=== PATIENT | female | born 1955 | race Caucasian/White ===

== ENCOUNTER 2025-06-14 09:25 | Emergency (ER) | payer MEDICARE, SELFPAY ==
--- NOTE | ~2025-06-14 | XR_ITS ---
Examination: XR toe 1st RT min 2V Clinical History: bruised and swollen,STUBBING INJURY,PROXIMAL PHALANGES Comparison: None Technique: 4 views right first toe Findings/impression: 1. Nondisplaced fracture right first toe, proximal phalanx, mid to distal portion. 2. Overhanging erosion first metatarsal, distal portion, lateral surface. Reviewed, dictated and finalized at location R. HOSPICE RN
[2025-06-14 09:32] VITALS: BP 154/90; PULSE 103; RESP 16; TEMP 36.4; O2SAT 99
--- OUTSIDE RECORDS SUMMARY | 2025-06-14 09:33 | XMS_ITS | Encounter Summary ---
Author Organization [facility] Address 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
--- OUTSIDE RECORDS SUMMARY | 2025-06-14 09:33 | XMS_ITS | Clinical Summary ---
Author Organization [facility] Address [address] 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
--- OUTSIDE RECORDS SUMMARY | 2025-06-14 09:33 | XMS_ITS | Clinical Summary ---
Author Organization [facility] [address] [facility] Address [address] [place] [address] Care Team Providers Care Merchandise Stocker Name Role Phone Marshall Cha MD Primary Care Provider [phone] Allergies Active Allergy Reactions Criticality Noted Date Comments Codeine Nausea only,Vomiting Reaction: NAUSEA, VOMITING, , , Reaction: Nausea, Medications pravastatin (PRAVACHOL) 20 mg tabletIndications: Hyperlipidemia, unspecified hyperlipidemia type TAKE 1 TABLET (20 MG TOTAL) BY MOUTH DAILY 90 tablet 9 01/08/20 25 Active phentermine 30 mg capsule TAKE 1 CAPSULE BY MOUTH EVERY DAY IN THE MORNING 30 capsule 06/03/20 25 Active phentermine 30 mg capsule TAKE 1 CAPSULE BY MOUTH EVERY DAY IN THE MORNING 30 capsule 05/02/20 25 025 Discontinued Active Problems Problem Noted Date Diagnosed Date BMI 33.0-33.9,adult 05/06/2025 Assessment & Plan (05/06/2025 9:36 AM CDT): As above. Encounter for Medicare annual wellness exam 08/10 Assessment & Plan (08/20/2024 9:54 AM FILM BOOKER): Visit preventive in nature. We reviewed medications, chronic conditions, risk factors, lifestyle recommendations. Reviewed immunization recommendations. Follow-up in 6 months for chronic conditions and 1 year for annual wellness. Colon cancer screening 08/20/2024 Assessment & Plan (08/20/2024 9:54 AM FILM BOOKER): Has never completed colon cancer screening. She is hesitant but agreeable to schedule. Discussed the importance of screening. She is agreeable and states understanding. Obesity (BMI 30-39.9) 08/26/2019 Assessment & Plan (05/06/2025 9:36 AM CDT): Encourage 150min/week aerobic exercise. Reviewed side effects related to phentermine and monitor response. NO change. Assessment & Plan (08/26/2019 8:31 AM FILM BOOKER): Advised on need for weight management. Hyperlipidemia 08/26/2019 Assessment & Plan (05/06/2025 9:36 AM CDT): Continues on pravastatin and will follow response. No new myalgias. Assessment & Plan (08/20/2024 7:36 AM FILM BOOKER): Reviewed recent lipid panel. Reviewed lifestyle recommendations. Continue pravastatin. Will continue to monitor. Assessment & Plan (08/26/2019 8:33 AM FILM BOOKER): Will await labs. ASCVD risk score review. History of partial mastectomy of left breast 09/2018 Overview (08/20/2024): 02/07/2012 at [facility] in conjunction with a left axillary sentinel lymph node biopsy. Adjustment disorder with anxious mood 11/10/2016 Assessment & Plan (08/20/2024 9:55 AM FILM BOOKER): Reports stable without the use of medications. Will continue to monitor. Assessment & Plan (08/26/2019 8:31 AM FILM BOOKER): Controlled at this time. Continue current medication. History of therapeutic radiation 11/10/2016 Overview (04/07/2017): Overview: Completed left breast radiotherapy 07/25/2012. 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 She had T1b disease. Following her breast conserving surgery on 02/07/2012 she received four cycles of AC chemotherapy which she completed 05/11/2012 and then presented for radiotherapy. Assessment & Plan (05/06/2025 9:35 AM CDT): Mammogram UTD and will follow response. Breast neoplasm 11/23/2013 Overview (10/14/2016): BREAST NEOPLASM NOS Insomnia 11/23/2013 Overview (10/14/2016): INSOMNIA NEC Assessment & Plan (08/26/2019 8:39 AM FILM BOOKER): She states she is using marijuana help with this. Abnormal mammogram of right breast 01/03/2012 Overview (10/14/2016): Abnormal mammogram Encounters Date Type Department Care Team Description 05/06/2025 9:15 AM CDT Office Visit [facility] [address] [place] [phone] Marshall Cha MD Mixed hyperlipidemia (Primary Dx); Obesity (BMI 30-39.9); BMI 33.0-33.9,adult; History of left breast cancer; Asymptomatic menopausal state 04/21/2025 8:25 AM CDT Lab [facility] [address] [place] [address] Mixed hyperlipidemia 04/15/2025 Results Follow-Up [facility] [address] [place] [phone] Marshall Cha MD MAMMOGRAPHY from Last 3 Months Immunizations Immunization Administration Dates Next Due Influenza, Quadrivalent, Rec ombinant, Egg Free, Preservative Free, Intramuscular 05/15/2020 Influenza, Quadrivalent, Spl it, Preservative Free, Intramuscular 04/07/2019,04/13/2018,07/26/2017 Influenza, Split 11/12/2013,11/12/2013 Influenza, Unspecified 05/06/2025(Deferr ed: Patient Refused),08/20/2024(Deferred: Patient Refused),03/10/2024(Deferred: Patient Refused),06/12/2023(Deferred: Patient Refused),04/09/2023(Deferred: Patient Refused),09/19/2022(Deferred: Patient Refused),03/10/2022(Deferred: Patient Refused),03/10/2022(Deferred: Patient Refused),03/31/2021(Deferred: Patient Refused) Surgical History Surgery Date Site/Laterality Comments SECTION 1980 SECTION 1983 OTHER SURGICAL HISTORY Carpal tunnel syndrome: carpal tunnel release OTHER SURGICAL HISTORY 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 SECTION section x 2 OTHER SURGICAL HISTORY 1992 right ulnar nerve surgery SECTION 1983 section Medical History Medical History Date Comments Hx Other Medical Carpal tunnel s yndrome; Outcome: failed Hx Other Medical ulnar nerve ivon ropathy; Outcome: resolved Hx Other Medical lumpectomy 2011 Malignant neoplasm of female breast (HCC) 2011 Cancer, breast; Outcome: tatyana mo and radiation Family History Medical History Relation Name Comments Coronary artery disease Mother Cami echeverria Coronary artery disease; Genetic hyperlipidemia/Coronary artery disease; Hyperlipidemia Mother Cami Oakes Hyperli pidemia; Other Other 1 No family histo ry of Cancer, breast; Diabetes Other 2 Family history of Diabetes mellitus; Relation Name Status Comments Father Alive Mother Cami Oakes Other 1 Other 2 Social History Tobacco Use Types Packs/Day Years Used Date Smoking Tobacco: Never Smokeless Tobacco: Never Tobacco Cessation:Counseling Given: Not Answered Alcohol Use Standard Drinks/Week Comments Yes 0 (1 standard drink = 0.6 oz pur e alcohol) PHQ-2 Answer Date Recorded PHQ-2 Total Score (If total score is 3 or more points, staff should administer the PHQ-9) 0 05/06/2025 Comments Unknown Sex and Gender Information Value Date Recorded Sex Assigned at Not on file Legal Sex Female 2:21 PM FILM BOOKER Gender Identity Not on file Sexual Orientation Not on file Last Filed Vital Signs Vital Sign Reading Time Taken Comments Blood Pressure 128/88 05/06/2025 9:04 AM CDT Pulse 84 05/06/2025 9:04 AM CDT Temperature 36.8 C (98.2 F) 05/06/2025 9:04 AM CDT Respiratory Rate 16 05/06/2025 9:04 AM CDT Oxygen Saturation 99% 05/06/2025 9:04 AM CDT room air Inhaled Oxygen Concentration - - Weight 90.3 kg (199 lb) 05/06/2025 9:04 AM CDT Height 165.1 cm (5' 5) 05/06/2025 9:04 AM CDT Body Mass Index 33.12 05/06/2025 9:04 AM CDT Plan of Treatment Health Maintenance Due Date Last Done Comments Colon Cancer Screening-Colonoscopy 1957 Hepatitis C Screening 1957 Osteoporosis Screening-Bone Density Scan 1957 DTaP/Tdap/Td Vaccine (1 - Tdap) 1968 Hepatitis B Screening 12/29/1975 Pneumococcal vaccine 65+ (1 of 1 - PCV) 12/29/2007 Zoster Vaccine (1 of 2) 12/29/2007 Influenza Vaccine (#1) 2025 , 04/07/2019, 04/13/2018, Additional history exists Well Visit 65+ 08/20/2025 08/20/2024 Breast Cancer Screening-Mammogram 04/15/2026 04/15/2025, 04/14/2025, 04/14/2025, Additional history exists Depression Screening 05/06/2026 05/06/2025, 08/20/2024, 06/12/2023, Additional history exists Fall Risk Assessment 05/06/2026 05/06/2025, 08/20/2024, 06/12/2023, Additional history exists Procedures Procedure Name Priority Date/Time Associated Diagnosis Comments EGFR Routine 04/21/2025 8:28 AM CDT Mixed hyperlipidemia DIFFERENTIAL AUTO Routine 04/21/2025 8:2 8 AM CDT Mixed hyperlipidemia CBC WITH AUTO DIFFERENTIAL Routine 04/21/2025 8:28 AM CDT Mixed hyperlipidemia COMPREHENSIVE METABOLIC PANEL Routine 04/21/2025 8:28 AM CDT Mixed hyperlipidemia LIPID PANEL Routine 04/21/2025 8:28 AM CDT Mixed hyperlipidemia HM MAMMOGRAPHY Routine 04/15/2025 4:33 PM CDT from Last 3 Months Results * eGFR (04/21/2025 8:28 AM CDT) eGFR 86 >=60 mL/min/1. 73 m2 Comment: Interpretive Data Reference Interval Normal >/= 90 mL/min/1.73m2 Mildly decreased* 60 - 89 mL/min/1.73m2 Mildly to moderately decreased 45 - 59 mL/min/1.73m2 Moderately to severely decreased 30 - 44 mL/min/1.73m2 Severely decreased 15 - 29 mL/min/1.73m2 Kidney Failure < 15 mL/min/1.73m2 *Relative to young adult level Estimated glomerular filtration rate is determined by the 2020 CKD-EPI equation recommended by the National Kidney Foundation (A Unifying Approach to GFR Estimation: Recommendations of the NKF-ASK Task Force on Reassessing the Inclusion of Race in Diagnosing Kidney Disease, JASN 2020). The CKD-EPI equation should not be used for patients with unstable renal function and has not been validated in children and those over 70. Current interpretive data was last reviewed 2021. Testing performed by: [facility], [address] [place] [address]., [address] Blood 04/21/2025 8:28 AM CDT 04/21/2025 1:09 PM CDT us Marshall Cha MD LAB BLOOD ORDERABLES Bridget l Result [facility] [place] 1 [facility] Department [place] [address] * Differential, auto (04/21/2025 8:28 AM CDT) Neutrophil abs 2.44 1.50 - 6.50 K/cumm Comment:Testing performed by : [facility], [address] [place] [address]., [address] Imm gran abs 0.00 0.00 - 0.10 K/cumm [facility] ([facility]) Comment:Testing performed by : [facility], [address] [place] [address]., [address] Lymphocyte abs 1.27 0.80 - 3.30 K/cumm [facility] ([place]) Comment:Testing performed by : [facility], [address] [place] [address]., [address] Monocyte abs 0.42 0.20 - 0.80 K/cumm [facility] ([place]) Comment:Testing performed by : [facility], [address] [place] [address]., [address] Eosinophil abs 0.08 0.00 - 0.50 K/cumm [facility] ([place]) Comment:Testing performed by : [facility], [address] [place] [address]., [address] Basophil abs 0.05 0.00 - 0.10 K/cumm [facility] ([place]) Comment:Testing performed by : [address] [address] Neutrophil pct 57.2 % [facility] ([place]) Comment: Interpretive Data Percent cell count reference ranges are not reported, since discordance with absolute values may lead to misinterpretation of CBC data. Current Interpretive Data was last revised on 2017. Testing performed by: [facility], [address] [place] [address]., [address] Imm gran pct 0.0 % [facility] ([place]) Comment: Interpretive Data Percent cell count reference ranges are not reported, since discordance with absolute values may lead to misinterpretation of CBC data. Current Interpretive Data was last revised on 2017. Testing performed by: [facility], [address] [place] [address]., [address] Lymphocyte pct 29.8 % [facility] ([facility]) Comment: Interpretive Data Percent cell count reference ranges are not reported, since discordance with absolute values may lead to misinterpretation of CBC data. Current Interpretive Data was last revised on 2017. Testing performed by: [address] [address] Monocyte pct 9.9 % [facility] ([place]) Comment: Interpretive Data Percent cell count reference ranges are not reported, since discordance with absolute values may lead to misinterpretation of CBC data. Current Interpretive Data was last revised on 2017. Testing performed by: [facility], [address] [place] [address]., [address] Eosinophil pct 1.9 % [facility] ([place]) Comment: Interpretive Data Percent cell count reference ranges are not reported, since discordance with absolute values may lead to misinterpretation of CBC data. Current Interpretive Data was last revised on 2017. Testing performed by: [facility], [address] [place] [address], [address] Basophil pct 1.2 % [facility] ([place]) Comment: Interpretive Data Percent cell count reference ranges are not reported, since discordance with absolute values may lead to misinterpretation of CBC data. Current Interpretive Data was last revised on 2017. Testing performed by: [address], [address] Blood 04/21/2025 8:28 AM CDT 04/21/2025 1:05 PM CDT us Marshall Cha MD LAB BLOOD ORDERABLES Bridget l Result [facility] ([place]) 1 [facility] Department [place] [address] * (ABNORMAL) CBC with auto differential (04/21/2025 8:28 AM CDT) WBC 4.26 3.80 - 9.90 K/cumm Comment:Testing performed by : [address], [address] Hgb 13.9 11.9 - 15.5 g/dL [facility] ([place]) Comment:Testing performed by : [address], [address] Hct 43.3 35.6 - 45.5 % [facility] ([place]) Comment:Testing performed by : [address], [address] Plt 360 150 - 400 K/cumm [facility] ([place]) Comment:Testing performed by : [address] [place]., [address] MPV 9.0(L) 9.1 - 12.3 fL [facility] ([place]) Comment:Testing performed by : [address], [address] RBC 4.43 3.90 - 5.20 M/cumm [facility] ([place]) Comment:Testing performed by : [address], [address] MCV 97.7(H) 81.3 - 96.4 fL [facility] ([place]) Comment:Testing performed by : [address], [address] MCH 31.4 27.1 - 33.3 pg [facility] ([place]) Comment:Testing performed by : [address], [address] MCHC 32.1(L) 32.3 - 35.7 g/dL [facility] ([place]) Comment:Testing performed by : [address], [address] RDW CV 13.7 11.1 - 14.9 % [facility] ([place]) Comment:Testing performed by : [address], [address] RDW SD 50.0(H) 35.7 - 48.1 fL [facility] ([place]) Comment:Testing performed by : [address], [address] NRBC abs 0.00 0.00 - 0.01 K/cumm [facility] ([place]) Comment:Testing performed by : [address], [address] Blood 04/21/2025 8:28 AM CDT 04/21/2025 1:05 PM CDT us Marshall Cha MD LAB BLOOD ORDERABLES Bridget ozuna Result [facility] ([place]) 1 [facility] Department [place] [address] * (ABNORMAL) Lipid panel (04/21/2025 8:28 AM CDT) Cholesterol 240(H) 30 - 199 mg/dL Comment: Interpretive Data Ages < or = 19 years Acceptable: <170 mg/dL Borderline high: 170-199 mg/dL High: >or= 200 mg/dL Ages > or = 20 years Desirable: <200 mg/dL Borderline high: 200-239 mg/dL High: >or= 240 mg/dL Literature References: 1. Expert Panel on Integrated Guidelines for Cardiovascular Health and Risk Reduction in Children and Adolescents. Pediatrics 2011;128:S213 2. NCEP Expert Panel. Circulation 2004;110:227 Current Interpretive Data was last revised on 2018. Testing performed by: [address] [address] Triglycerides 93 <=149 mg/dL [facility] ([place]) Comment: Interpretive Data Ages < or = 9 years Acceptable: <75 mg/dL Borderline high: 75-99 mg/dL High: >or= 100 mg/dL Ages 10 to 20 years Acceptable: <90 mg/dL Borderline high: 90-129 mg/dL High: >or= 130 mg/dL Ages > or = 20 years Desirable: <150 mg/dL Borderline high: 150-199 mg/dL High: 200-499 mg/dL Very high: >or= 499 mg/dL Literature References: 1. Expert Panel on Integrated Guidelines for Cardiovascular Health and Risk Reduction in Children and Adolescents. Pediatrics 2011;128:S213 2. NCEP Expert Panel. Circulation 2004;110:227 Current Interpretive Data was last revised on 2018. Testing performed by: [facility], [address] [place] [address]., [address] HDL 83 >=40 mg/dL [facility] ([place]) Comment: Interpretive Data Ages < or = 19 years Acceptable: >45 mg/dL Borderline low: 40-45 mg/dL Low: <40 mg/dL Ages > or = 20 years Desirable: >or= 60 mg/dL Low: <40 mg/dL Literature References: 1. Expert Panel on Integrated Guidelines for Cardiovascular Health and Risk Reduction in Children and Adolescents. Pediatrics 2011;128:S213 2. NCEP Expert Panel. Circulation 2004;110:227 Current Interpretive Data was last revised on 2018. Testing performed by: [address] [address] LDL, calculated 141(H) <=129 mg/dL [facility] ([place]) Comment: Interpretive Data Ages < or = 19 years Acceptable: <110 mg/dL Borderline high: 110-129 mg/dL High: >or= 130 mg/dL Ages > or = 20 years Optimal: <100 mg/dL Near optimal: 100-129 mg/dL Borderline high: 130-159 mg/dL High: >160 mg/dL Calculated using the Bean LDL-C estimating equation. This equation was implemented on 2024. Prior to this date LDL-C was estimated using the Friedewald equation. Literature References: 1. Expert Panel on Integrated Guidelines for Cardiovascular Health and Risk Reduction in Children and Adolescents. Pediatrics 2011;128:S213 2. NCEP Expert Panel. Circulation 2004;110:227 3. Bean Proctor et al. TRUE Cardiol. 2019November 07;5(5):540-548. doi: 10.1001/jamacardio.2020.0013 Current Interpretive Data was last revised on 2024. Testing performed by: [address] [address] Non-HDL Cholesterol 157 mg/dL [facility] ([place]) Comment: Interpretive Data Ages < or = 19 years Acceptable: <120 mg/dL Borderline high: 120-144 mg/dL High: >145 mg/dL Ages > or = 20 years When triglycerides are >200 mg/dL, Non-HDL cholesterol is a secondary target of therapy with treatment goals that are 30 mg/dL greater than the LDL cholesterol target. Literature References: 1. Expert Panel on Integrated Guidelines for Cardiovascular Health and Risk Reduction in Children and Adolescents. Pediatrics 2011;128:S213 2. NCEP Expert Panel. Circulation 2004;110:227 Current Interpretive Data was last revised on 2018. Testing performed by: [address] [address] Chol/HDL ratio 3 [facility] ([place]) Comment:Testing performed by : [facility], [address] [place] [address]., [address] Blood 04/21/2025 8:28 AM CDT 04/21/2025 1:05 PM CDT us Marshall Cha MD LAB BLOOD ORDERABLES Bridget ozuna Result [facility] ([place]) 1 [facility] Department [place] [address] * Comprehensive metabolic panel (04/21/2025 8:28 AM CDT) Sodium 137 135 - 145 mmol/L Comment:Testing performed by : [address] [address] Potassium, pl 4.8 3.3 - 4.9 mmol/L [facility] ([place]) Comment:Testing performed by : [facility], [address] [place] [address]., [address] Chloride 102 97 - 110 mmol/L [facility] ([place]) Comment:Testing performed by : [address], [address] CO2 23 22 - 32 mmol/L [facility] ([place]) Comment:Testing performed by : [address], [address] Anion gap 12 2 - 15 mmol/L [facility] ([place]) Comment:Testing performed by : [address] [address] BUN 10 6 - 25 mg/dL [facility] ([place]) Comment:Testing performed by : [address], [address] Creatinine 0.76 0.60 - 1.10 mg/dL [facility] ([place]) Comment:Testing performed by : [address], [address] Glucose 110 70 - 199 mg/dL [facility] ([place]) Comment: Interpretive Data Fasting glucose >/= 126 mg/dl is diagnostic for diabetes. Fasting is defined as no caloric intake for at least 8 hours. Fasting glucose between 100 mg/dl to 125 mg/dl is diagnostic of prediabetes. In a patient with classic symptoms of hyperglycemia or hyperglycemic crisis, a random glucose >/= 200 mg/dl is diagnostic for diabetes. In the absence of unequivocal hyperglycemia, results should be confirmed by repeat testing. The classification and Diagnosis of Diabetes Diabetes Care 202; 46: S19-S40. Current interpretive data was last revised 2022. Testing performed by: [facility], [address] [place] [address]., [address] Calcium 9.6 8.5 - 10.3 mg/dL [facility] ([place]) Comment:Testing performed by : [address], [address] Bilirubin, total 0.5 0.1 - 1.2 mg/dL [facility] ([place]) Comment:Testing performed by : [facility], [address] [place] [address], [address] Protein, pl 7.8 6.5 - 8.5 g/dL [facility] ([place]) Comment:Testing performed by : [facility], [address] [place] [address], [address] Albumin 4.3 3.5 - 5.0 g/dL [facility] ([place]) Comment:Testing performed by : [facility], [address] [place] [address], [address] Alk phos 87 40 - 130 Units/L [facility] ([place]) Comment:Testing performed by : [facility], [address] [place] [address], [address] ALT 22 7 - 45 Units/L [facility] ([place]) Comment:Testing performed by : [facility], [address] [place] [address], [address] AST 29 10 - 45 Units/L [facility] ([place]) Comment:Testing performed by : [address], [address] Blood 04/21/2025 8:28 AM CDT 04/21/2025 1:05 PM CDT Marshall Cha MD LAB BLOOD ORDERABLES Bridget l Result [facility] ([place]) 1 [facility] Department [place] [address] * HM MAMMOGRAPHY (04/15/2025 4:33 PM CDT) us Historical Provider HEALTH MAINTENANCE Final Result from Last 3 Months Insurance [place] CHO[place] [facility] MEDICARE ADVANTAGE [facility] MEDICARE Address: [address] [address] [place] [address] [employer]ENSATION GENERIC Care Teams Merchandise Stocker Relationship Specialty Start Date End Date Marshall Cha MD [address] [place] [address] PCP - General 10/07/16
--- OUTSIDE RECORDS SUMMARY | 2025-06-14 09:33 | XMS_ITS | Clinical Summary ---
Author Organization [facility] Address [address] [place] [address] Phone Care Team Providers Care Knockdown Worker Name Role Phone Marshall Cha MD Primary Care Provider [phone] Armando Davenport MD Unavailable [phone] Allergies Active Allergy Reactions Criticality Noted Date Comments Codeine Nausea Low 11/11/2015 Medications PRAVASTATIN SODIUM PO Take by mouth daily. Active Active Problems Problem Noted Date Diagnosed Date History of lymph node biopsy 07/12/2018 Overview (07/12/2018): Left axillary sentinel lymph node biopsy 02/07/2012 at [facility] in conjunction with a left partial mastectomy. History of partial mastectomy of left breast 09/2018 Overview (07/12/2018): 02/07/2012 at [facility] in conjunction with a left axillary sentinel lymph node biopsy. History of cancer chemotherapy 07/12/2018 Overview (07/12/2018): 4 cycles of adjuvant postoperative AC completed 05/11/2012. History of therapeutic radiation 11/10/2016 Overview (11/10/2016): Completed left breast radiotherapy 07/25/2012. 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 Following her breast conserving surgery on 02/07/2012 she received 4 cycles of AC chemotherapy which she completed 05/11/2012 and then presented for radiotherapy. She completed left breast radiotherapy 07/25/2012. Abnormal mammogram of right breast Encounters Date Type Department Care Team Description 04/14/2025 8:55 AM CDT - 04/14/2025 11:59 PM CDT Hospital Encounter [facility] Mammography [address] [place] [address] Marshall Cha MD Discharge Disposition: Discharged to home or Selfcare 04/14/2025 Travel from Last 3 Months Family History Medical History Relation Name Comments No Known Problems Brother 1 Elevated Lipids Brother 2 Elevated Lipids Brother 3 Cirrhosis Father Congestive Heart Failure Mother Diabetes Mother Heart Attack Mother Hypertension Sister Relation Name Status Comments Brother 1 Alive Brother 2 Alive Brother 3 Alive Father Mother Sister Alive Social History Tobacco Use Types Packs/Day Years Used Date Smoking Tobacco: Never Smokeless Tobacco: Never Alcohol Use Standard Drinks/Week Comments Yes 15 (1 standard drink = 0.6 oz pu re alcohol) Sexually Active Control Partners Comments Never Comments No Sex and Gender Information Value Date Recorded Sex Assigned at Not on file Legal Sex Female 12:27 AM CDT Gender Identity Not on file Sexual Orientation Not on file Last Filed Vital Signs Vital Sign Reading Time Taken Comments Blood Pressure 146/92 03/24/2022 9:19 AM CDT anxiety high today with home things Pulse 95 03/24/2022 9:19 AM CDT Temperature 36.3 C (97.3 F) 03/24/2022 9:19 AM CDT Respiratory Rate 16 03/24/2022 9:1 9 AM CDT Oxygen Saturation 98% 03/24/2022 9:1 9 AM CDT Inhaled Oxygen Concentration - - Weight 89.9 kg (198 lb 1.6 oz) 03/24/2022 9:19 AM CDT Height 165.1 cm (5' 5) 02/11/2021 11:2 3 AM CDT Body Mass Index 32.97 02/11/2021 11:23 AM CDT Plan of Treatment Health Maintenance Due Date Last Done Comments DEXA Bone Density 1955 Hepatitis C Virus (HCV) Screening 1955 TdaP Immunization 1955 Cologuard 2002 Colonoscopy 2002 Colorectal Cancer Screening 2002 Immunochemical Fecal Occult Blood 2002 Pneumococcal Immunization (50+ years) (1 of 1 - PCV) 12/29/2007 Zoster Immunization (1 of 2) 12/29/2007 Medicare Initial AWV G0438 12/09/2023 Influenza Immunization (#1) 2025 11/0 12/2019, 04/07/2019, 04/13/2018, Additional history exists SARS-COV-2 Immunization ( - season) 2025 Mammogram 04/14/2026 04/14/2025, 02/08, 02/13/2023, Additional history exists Respiratory Syncytial Virus (RSV) Immunization (Adult) (1 - 1-dose 75+ series) 2032 Hepatitis B Immunization Aged Out No longer eligible based on patient's age to complete this topic Human Papillomavirus (HPV) Immunization Aged Out No longer eligible based on patient's age to complete this topic Meningococcal Immunization (ACWY) Aged Out No longer eligible based on patient's age to complete this topic Rotavirus Immunization Aged Out No lo nger eligible based on patient's age to complete this topic Procedures Procedure Name Priority Date/Time Associated Diagnosis Comments [facility] SCREENING BILATERAL DIGITAL W CAD W TONNY Routine 04/14/2025 9:26 AM CDT Breast cancer screening by mammogram from Last 3 Months Results * [facility] SCREENING BILATERAL DIGITAL W CAD W TONNY (04/14/2025 9:26 AM CDT) Anatomical Region Laterality Modality breast Bilateral Mammography 04/14/2025 8:55 AM CDT Impressions 04/14/2025 5:56 PM CDT IMPRESSION: There is no mammographic evidence of malignancy. RECOMMENDATION: Annual screening mammography. BI-RADS 2: Benign. Narrative 04/14/2025 5:56 PM CDT [facility] SCREENING BILATERAL DIGITAL W CAD W TONNY EXAM DATE: 04/14/2025 9:14 AM HISTORY: 69 years year old Female. Encounter for screening mammogram for malignant neoplasm of breast TECHNIQUE: Standard bilateral mammographic views were obtained. Additional 3D tomographic mammography was also obtained. Current study was also evaluated with a Computer Aided Detection (CAD) system. COMPARISON: Comparison made with previous examination(s) dated (MG) 07-Mar-2024,(MG) 13-Feb-2023. FINDINGS: There are scattered areas of fibroglandular density. (Category B) Left breast postoperative change noted. No suspicious masses, calcifications, architectural distortion or other findings. us Marshall Cha MD IMG MAMMO ORDERABLES Bridget sulma Result from Last 3 Months Insurance MEDICARE C [facility] Care Teams Knockdown Worker Relationship Specialty Start Date End Date Marshall Cha MD [address] [place] [address] PCP - General Internal Medicine 11/03/15 Armando Davenport MD [address] [place] [address] Consulting Physician Radiation Oncology 11/11/15
--- OUTSIDE RECORDS SUMMARY | 2025-06-14 09:33 | XMS_ITS | Encounter Summary ---
Author Organization [facility] Address [address] [place] [address] Care Team Providers Care Medical Office Manager Name Role Phone Marshall Cha MD Primary Care Provider [phone] Encounter Details Date Type Department Care Team ([facility] st Contact Info) Description 04/15/2025 Results Follow-Up [facility] [address] [address] Marshall Cha MD [address] [place] [address] [facility] MAMMOGRAPHY Social History Tobacco Use Types Packs/Day Years Used Date Smoking Tobacco: Never Smokeless Tobacco: Never Alcohol Use Standard Drinks/Week Comments Yes 0 (1 standard drink = 0.6 oz pur e alcohol) PHQ-2 Answer Date Recorded PHQ-2 Total Score (If total score is 3 or more points, staff should administer the PHQ-9) 0 08/20/2024 Comments Unknown Sex and Gender Information Value Date Recorded Sex Assigned at Not on file Legal Sex Female 2:21 PM MANAGEMENT [employer] Gender Identity Not on file Sexual Orientation Not on file documented as of this encounter Plan of Treatment Not on file documented as of this encounter Visit Diagnoses Not on filedocumented in this encounter Care Teams Medical Office Manager Relationship Specialty Start Date End Date Marshall Cha MD [address] [place] [id number] PCP - General 10/07/16 documented as of this encounter
--- NOTE | 2025-06-14 10:08 | ED_ITS ---
HPI - Extremity Injury (Lower) General Chief Complaint: Extremity Injury, Lower Stated Complaint: Right Foot/Toe Injury Time Seen by Provider: 06/14/25 10:08 Source: patient Mode of arrival: ambulatory Limitations: no limitations History of Present Illness HPI Narrative: 69-year-old female presents with complaint of bruising, swelling, pain to right great toe. Kicked a hard piece of snow/ ice 3 days ago. All systems reviewed and negative except as noted above. Related Data Home Medications ?Medication ?Instructions ?Recorded ?Confirmed ?Last Taken ?Type pravastatin .ROUTE 06/14/25 Unknown His tory Allergies Allergy/AdvReac Type Severity Reaction Status Date / Time codeine AdvReac Unknown Nausea and Verified 06/14/25 09:58 Vomiting PMFSH Comments At time of signature, agree with nursing past medical, surgical, social and family history. There is no relevant family history pertinent to the presenting complaint. Exam Narrative: GENERAL: This is a well-nourished, well-developed patient, in no apparent distress. HEAD: normocephalic, atraumatic. EYES: PERRL. Sclera clear/white. Vision is grossly intact. EARS: External ears normal NOSE: External nose normal NECK: Neck supple, non-tender without lymphadenopathy, masses or thyromegaly. CARDIOVASCULAR: Regular rate and rhythm without murmurs, gallops, or rubs. RESPIRATORY: Clear to auscultation. Breath sounds equal bilaterally. No wheezes, rales, or rhonchi. SKIN: warm, Dry, intact with no suspicious lesions or rash, good texture and turgor. NEURO: awake, alert, and oriented to person, place and time. There were no obvious focal neurologic abnormalities. EXTREMITIES: Tenderness mid right great toe on palpation. Entire right great toe is swollen, bruised. Bruising extends to proximal aspect of right foot. No deformity noted. Decreased range of motion due to pain. Distal neurovascularly intact. Course Course Level of Care: Express Care Visit Vital Signs Vital signs: Vital Signs Temperature 36.4 C 06/14/25 09:32 Pulse Rate 103 H 06/14/25 09:32 Respiratory Rate 16 06/14/25 09:32 Blood Pressure 154/90 H 06/14/25 09:32 Pulse Oximetry 99 06/14/25 09:32 Oxygen Delivery Room Air 06/14/25 09:32 Temperature 36.4 C 06/14/25 09:32 Pulse Rate 103 H 06/14/25 09:32 Respiratory Rate 16 06/14/25 09:32 Blood Pressure 154/90 H 06/14/25 09:32 Pulse Oximetry 99 06/14/25 09:32 Oxygen Delivery Room Air 06/14/25 09:32 Reviewed MDM MDM Narrative Medical decision making narrative: discussed x-ray results with patient. Patient placed in postop shoe. Recommend follow-up primary care physician for fracture care. Differential Diagnosis Differential Diagnosis: Differential diagnostic considerations for lower extremity injury include ankle sprain/strain, acute internal derangement of knee, fracture of femur, fracture of hip, puncture wound of foot, fracture of toe, fracture of ankle, tendon rupture (achilles/patellar/quadriceps). Discharge Plan Discharge Clinical Impression: Fracture of great toe of right foot Qualifiers: Encounter type: initial encounter Fracture type: closed Patient Disposition: Home Condition: Stable Instructions: Toe Fracture (ED) Additional Instructions: the x-ray of your right great toe showed a fracture. Wear postop shoe for comfort when ambulatory. Elevate when at rest. Take ibuprofen or Tylenol every 6-8 hours as needed for pain. Follow-up with your primary care physician in the next 2-3 weeks to re- evaluate healing. Patient Language: Irish Prescriptions: No Action pravastatin .ROUTE Follow-up/Referrals: Harms,Marshall Juarez M.D. [Primary Care Provider] Time of Disposition: 10:26
== END 2025-06-14 10:30 | disposition home or self-care (01) ==
PROVIDERS: Emergency Provider Nurse Practitioner Family; PCP Family Medicine
DX: S92.414A Nondisplaced fracture of proximal phalanx of right great toe, initial encounter for closed fracture (principal); W22.8XXA Striking against or struck by other objects, initial encounter; E78.00 Pure hypercholesterolemia, unspecified; Z85.3 Personal history of malignant neoplasm of breast; Z92.21 Personal history of antineoplastic chemotherapy; Z92.3 Personal history of irradiation
CPT/HCPCS: 73660; 99204; G0463